=== PATIENT | male | born 1980 | race Caucasian/White ===

== ENCOUNTER 2018-12-17 09:30 | Emergency (ER) | payer MEDICAID ==
[~2018-12-17] VITALS: Ht 172.7 cm; Wt 81.8 kg
[2018-12-17 09:33] VITALS: Ht 172.7 cm; Wt 81.8 kg
[2018-12-17 10:13] LABS: BASOPHILS 0.3 % (0-2); EOSINOPHILS 1.5 % (0-7); HEMATOCRIT 34.1 % (42.0-54.0); HEMOGLOBIN 11.5 g/dL (13.5-17.5); IMMATURE GRANULOCYTES 0.5 % (0-5); LYMPHOCYTES 16.2 % (15-50); MCH 31.8 pg (26.0-34.0); MCHC 33.7 g/dL (31.0-37.0); MCV 94.2 fL (80.0-100.0); MEAN PLATELET VOLUME 9.6 fL (7.4-10.4); MONOCYTES 8.2 % (2-11); NEUTROPHILS 73.3 % (40-80); PLATELET COUNT 261 10x3/uL (130-400); RBC 3.62 10x6/uL (4.20-6.10); RDW 15.9 % (11.5-14.5); WBC 10.8 10x3/uL (4.8-10.8)
[2018-12-17 10:28] LABS: APTT 25.9 SECONDS (22.8-39.4); INR 1.05 (0.85-1.17); PROTIME 13.2 SECONDS (11.6-15.0)
[2018-12-17 10:29] LABS: ALBUMIN 3.2 g/dL (3.4-5.0); ANION GAP 10.7 mmol/L (8-16); BILIRUBIN - TOTAL 1.07 mg/dL (0.2-1.3); CALCIUM 8.4 mg/dL (8.5-10.1); CARBON DIOXIDE 30.3 mmol/L (21.0-32.0); CREATININE - SERUM 1.8 mg/dL (0.6-1.3); PROTEIN - SERUM 7.3 g/dL (6.4-8.2)
[2018-12-17 11:02] LABS: AMYLASE - SERUM 50 U/L (25-115); LIPASE 71 U/L (73-393)
[2018-12-17 14:18] LABS: BASOPHILS 0.2 % (0-2); EOSINOPHILS 1.5 % (0-7); HEMOGLOBIN 9.3 g/dL (13.5-17.5); IMMATURE GRANULOCYTES 0.2 % (0-5); LYMPHOCYTES 27.2 % (15-50); MCH 31.3 pg (26.0-34.0); MCHC 33.2 g/dL (31.0-37.0); MCV 94.3 fL (80.0-100.0); MEAN PLATELET VOLUME 9.8 fL (7.4-10.4); MONOCYTES 9.8 % (2-11); NEUTROPHILS 61.1 % (40-80); PLATELET COUNT 279 10x3/uL (130-400); RBC 2.97 10x6/uL (4.20-6.10); RDW 15.7 % (11.5-14.5); WBC 8.3 10x3/uL (4.8-10.8)
[2018-12-17 15:01] LABS: CKMB 2.3 U/L (0.0-3.6); CREATINE KINASE 433 UL (21-232); TROPONIN-I 0.034 ng/mL (0.000-0.060)
[2018-12-17 23:09] LABS: HEMOGLOBIN 7.6 g/dL (13.5-17.5)
[2018-12-18 00:01] VITALS: BP 112/75
== END 2018-12-18 00:05 | disposition other institution (70) ==
LOC: D.ER 09:30
PROVIDERS: Family Medicine
DX: K92.2 Gastrointestinal hemorrhage, unspecified (principal); R94.5 Abnormal results of liver function studies; I95.9 Hypotension, unspecified; N28.9 Disorder of kidney and ureter, unspecified